=== PATIENT | male | born 1960 | race Caucasian/White ===

== ENCOUNTER 2024-07-03 14:44 | Inpatient (IN) | payer MEDICARE, OTHER, SELFPAY ==
[2024-07-03] VITALS (30 sets, daily range): BP systolic 100–162; BP diastolic 68–106; BMI 28.0; BMI 26.5
[2024-07-03 13:00] LABS: % Basophils 0.2 % (0-2); % Eosinophils 0.4 % (0-6); % Immature Granulocytes 0.7 % (0-0.5); % Lymphocytes 20.1 % (20.5-51.1); % Monocytes 7.7 % (1.7-9.3); % Neutrophils 70.9 % (42.2-75.2); Absolute Eosinophils 0.1 10^3/uL (0-0.7); Absolute Immature Granulocytes 0.2 10^3/uL (0-0.05); Absolute Lymphocytes 4.8 10^3/uL (1.2-3.4); Absolute Monocytes 1.8 10^3/uL (0.1-0.6); Absolute Neutrophils 16.9 10^3/uL (1.4-6.5); Hematocrit 41.9 % (39.0-52.0); Hemoglobin 14.3 g/dL (13.0-18.0); Mean Corp Hgb Conc. 34.1 g/dL (33.0-37.0); Mean Corpuscular Hgb 29.1 pg (27.0-31.0); Mean Corpuscular Volume 85.3 fL (80.0-94.0); Mean Platelet Volume 11.5 fL (7.4-10.4); Nucleated Red Blood Cells % 0 % (-); Platelet Count 210 10^3/uL (130-400); Red Blood Cell Count 4.91 10^6/uL (4.70-6.10); Red Cell Dist. Width 13.5 % (11.5-14.5); White Blood Cell Count 23.8 10^3/uL (4.8-10.8)
[2024-07-03 13:09] LABS: Venous Blood Gas B.E. 1.2 mmol/L (-4 to +4); Venous Blood Gas HCO3 35.6 mmol/L (22-27); Venous Blood Gas O2 Sat % 99.5 %; Venous Blood Gas pO2 187 mmHg (30-50)
[2024-07-03 13:13] LABS: Venous Blood Gas pCO2 > 115 mmHg (35-48); Venous Blood Gas pH 7.08 (7.32-7.43)
[2024-07-03 13:15] LABS: ALT (SGPT) 81 U/L (0-50); AST (SGOT) 150 U/L (17-59); Albumin 4.3 g/dl (3.5-5.0); Alkaline Phosphatase 64 U/L (38-126); Blood Urea Nitrogen 24 mg/dl (9-20); Carbon Dioxide 33 mmol/L (22-30); Chloride 97 mmol/L (98-107); Estimated Creatinine Clearance 94 ml/min; Glucose 311 mg/dl (70-99); Potassium 4.5 mmol/L (3.5-5.1); Sodium 139 mmol/L (135-145); Total Bilirubin 1.1 mg/dl (0.2-1.3); Total Protein 7.9 g/dl (6.3-8.2); eGFR > 60.00
[2024-07-03 13:23] LABS: INR 1.04; PT 13.4 Sec (11.4-14.6)
[2024-07-03 13:24] LABS: Troponin I < 0.012 ng/ml
[2024-07-03 14:27] LABS: Venous Blood Gas B.E. 5.5 mmol/L (-4 to +4); Venous Blood Gas HCO3 39.5 mmol/L (22-27); Venous Blood Gas O2 Sat % 99.9 %; Venous Blood Gas pO2 198 mmHg (30-50)
[2024-07-03 14:29] LABS: Venous Blood Gas pCO2 > 115 mmHg (35-48); Venous Blood Gas pH 7.14 (7.32-7.43)
--- NOTE | 2024-07-03 14:55 | HPS.HSE ---
Family Physician
-
Family Physician: Samantha Khoury MD
Chief Complaint
-
Resp Distress
History of Present Illness
Patient is a 64y M with PMH significant for neuromuscular disease and vocal cord dysfunction who presents to ED in respiratory distress. History obtained primarily from family at the bedside. Patient has history of neuromuscular disease - ? ALS
versus myasthenia - initially diagnosed in 2021. He had been intubated 5 times in a span of 10 months in 2022 - typically due to aspiration from dysphagia / vocal cord dysfunction. He had PEG tube placed in November / December of this year and has
been doing fairly well since that time. He is followed by Neurology at [place] and Pulmonology at [place]. He uses NIPPV at night routinely.
For the past 3 days, patient has been somewhat more SOB than usual. He has been having episodes of significant dyspnea - mostly at night - that seem to improve with use of BiPAP.
Today he walked the dog and when he came back inside he was significantly short of breath. Patient went upstairs and placed his NIPPV on in an attempt to catch his breath.
Son notes that he becomes anxious when SOB (understandably) which only worsens his symptoms.
While on BiPAP, he became diaphoretic / cyanotic and lost consciousness. EMS was called and patient brought to the ED for further evaluation.
In the ED, patient was placed on NIPPV and is currently more alert and answering questions for his family members at the bedside.
Medical History
Past Medical History
Past Medical History: Reports Other
Additional Past Medical History:
Neuromuscular Disease / Vocal Cord Dysfunction
Myasthenia Gravis v ALS
Hypertension
Past Surgical History: Reports Other
Additional Past Surgical History:
Hernia Repair
PEG Placement
Social History
Tobacco: Former Smoker (Quit smoking 2 years ago. > 40 pack years total use.)
Alcohol: None
Drug: None
Personal:
Living: With Family
Family History
Family History: Not pertinent
Allergies / Home Medications
Allergies reflects when Allergies were last updated in [employer].
Home Medications with original date entered in [employer]
Allergy/Medication List:
Allergies
Allergy/AdvReac Type Severity Reaction Status Date / Time
succinylcholine Allergy Unknown Verified 07/03/24 13:12
Home Medications
atorvastatin 20 mg tablet 20 mg feeding tube DAILY 07/03/24
glycopyrrolate 1 mg tablet 1 mg feeding tube TID 07/03/24
metoprolol tartrate 50 mg tablet 50 mg feeding tube BID 07/03/24
prednisone 20 mg tablet 20 mg feeding tube Q48H 07/03/24
prednisone 20 mg tablet 40 mg feeding tube Q48H 07/03/24
pyridostigmine bromide 180 mg tablet,extended release 180 mg PO HS 07/03/24
pyridostigmine bromide 60 mg/5 mL oral syrup 60 mg feeding tube TID 07/03/24
sulfamethoxazole 800 mg-trimethoprim 160 mg tablet (Bactrim DS) 1 tab feeding tube MOWEFR 07/03/24
tadalafil 5 mg tablet 5 mg feeding tube DAILYPRN PRN ed 07/03/24
Review of Systems
-
History Source: Patient and Family
A 12 point ROS was completed and negative except as noted: Yes
Constitutional: Reports Fatigue; Denies Fever or Chills
EENT: Denies Sore Throat
Respiratory: Reports Trouble Breathing; Denies Cough or Hemoptysis
Cardiac: Reports Diaphoresis and Syncope; Denies Chest Pain or Palpitations
Abdomen/GI: Denies Abdominal Pain, Nausea, Vomiting, Diarrhea or Constipated
: Denies Dysuria, Frequency or Flank Pain
Musculoskeletal: Denies Joint Pain or Edema
Neurological: Denies Dizzy or Headache
Psych: Denies Depression or Anxiety
Physical Exam
Vital Signs
Vital Signs
Temp Pulse Resp BP Pulse Ox
98.2 F 78 20 148/96 94
07/03/24 12:57 07/03/24 14:00 07/03/24 14:00 07/03/24 14:00 07/03/24 14:00
Physical Exam
General: Other (64y M with BiPAP mask in place. Diaphoretic. Awake and interactive.)
HEENT: Other (Thick neck. MMM)
Respiratory: Other (Decreased breath sounds throughout. No appreciable W/R/R.)
Cardiac: S1/S2 and Regular Rhythm; No Murmur
GI: Soft, Non Tender, Non Distended, Normal Bowel Sounds and Other (PEG site OK without erythema / induration / discharge.)
Musculoskeletal: No Clubbing, No Cyanosis and No Edema
Neuro: Awake and Alert
Laboratory Results
-
07/03/24 12:52
07/03/24 12:53
Laboratory Results
PT 13.4 Sec (11.4-14.6) 07/03/24 12:52
INR 1.04 07/03/24 12:52
APTT 27.0 Sec (23.4-35.0) 07/03/24 12:52
Total Bilirubin 1.1 mg/dl (0.2-1.3) 07/03/24 12:53
AST 150 U/L (17-59) H 07/03/24 12:53
ALT 81 U/L (0-50) H 07/03/24 12:53
Alkaline Phosphatase 64 U/L (38-126) 07/03/24 12:53
Troponin I < 0.012 ng/ml 07/03/24 12:52
Impression/Plan
-
A/P: Patient is a 64y M with PMH significant for myasthenia / neuromuscular disease who presents to ED for evaluation of respiratory distress.
Acute Hypercapnic / Hypoxemic Respiratory Failure
Syncope secondary to the above
- Admit for further evaluation and treatment.
- Admit to ICU.
- Continue NIPPV for now and follow for improvement clinically and in gas exchange.
- May ultimately require intubation.
- Pulmonary consult for additional recommendations.
Neuromuscular Disease
Chronic Dysphagia
- History of vocal cord dysfunction / chronic dysphagia with multiple prior episodes of aspiration requiring intubation.
- No issues since PEG placement in Nov of this year.
- Keep NPO.
- Speech eval.
- Dietary eval for tube feed recommendations.
- Will cover with IV abx for now for possible aspiration event leading to today's increase in dyspnea.
- Discontinue abx if no fever or other evidence of infection in the next 24-48 hours.
- Change to IV steroids for now.
- Neurology evaluation for additional recommendations.
- Try to obtain outpatient records for review.
Benign Hypertension
- Stable. Continue metoprolol with holding parameters.
DVT Prophylaxis: Lovenox
Code Status: Full
--- NOTE | 2024-07-03 14:58 | ED.GENMED ---
History of Present Illness
General
Chief Complaint: Airway Problem
Source: patient and family (son)
Time Seen by Provider: 07/03/24 13:14
History of Present Illness
History of Present Illness:
64-year-old male brought to the emergency room by paramedics after having respiratory distress. History obtained through the patient's son who is a medical oncologist at [place]. Patient has a history of a neuromuscular disease. The exact
diagnosis is unclear but myasthenia gravis or ALS are considered. Patient has had multiple intubations in the past due to was thought to be vocal cord spasm, aspiration hypercapnia. Because of this the patient has a feeding tube for which she
receives all his nutrition. Since the feeding tube is placed the patient has not required the patient. For the past couple days the patient has had some change in his voice and perhaps difficulty swallowing. Today after walking the dog he was
having respiratory distress and was cyanotic. Became unresponsive. Medics arrived and began bag valve mask ventilation. By the time the patient arrived to the emergency room he was more alert. He was still confused but breathing spontaneously.
During his initial evaluation patient's mental status continued to improve.
Phy Exam
Physical Exam
Physical Exam:
General: Awake, eyes open, appears chronically ill, irregular breathing pattern
Vitals: unremarkable
Head: Atraumatic
Eyes: Pupils equal, EOMI
Throat: Airway intact, no exudates
Neck: Trachea midline
Lungs: Coarse breath sounds
Heart: Regular rate, no murmurs
Abd: Soft, Nontender, G-tube placed, no pulsatile mass
Neuro: No focal weakness
Skin: Warm, dry, no rash
Extremities: pulses equal b/l, no edema
Course
Orders/Labs/Results
Orders:
Orders
07/03/24 12:52
Complete Blood Count/With Diff Urgent
PT/INR [Prothrombin Time] Urgent
PTT Urgent
TSH Reflex To Free T4 Urgent
Comment: COMBINED
Troponin I Urgent
07/03/24 12:53
Comprehensive Metabolic Panel Urgent
Creatine Phosphokinase Urgent
07/03/24 13:00
Venous Blood Gas Urgent
%Oxygen/Room Air: 100
Comment: Non-Rebreather 15L
07/03/24 13:48
CR Chest Portable - 1 View Urgent
Comment:
Reason For Exam: respiratory disress
Reason Study Needs to be Portable: Patient Unstable
07/03/24 14:11
Venous Blood Gas Urgent
%Oxygen/Room Air: 6l
07/03/24 14:24
Admit/Transfer Patient As Directed
Co-Sign Provider:
Level of Care: Inpatient admission
Assign to:: ICU
Physician / Group: Victor M
Diagnosis: Hypercapnic Respiratory Failure
Reason for Hospitalization: Hypercapnic Respiratory Failure
Expected length of stay greater than two midnights?: Yes
ELOS- Estimated Length of Stay in days: 4
I certify the patient meets the requirements for IP care: Yes
PRN Pain Medication Management As Directed
May give lesser potent ordered pain med per pt: Yes
preference::
Protocol:: Medication orders for pain may be administered in a
manner that supports deferring to patient preference
when the pt is:
- Requesting an ordered lesser potent pain medication.
Least to most potent pain medications are defined
as: acetaminophen < NSAID < tramadol < opioids
(morphine, oxycodone, hydromorphone).
- Requesting a lesser dose of the same medication IF
ORDERED.
- Requesting a less intrusive route of administration
if both routes are prescribed by the provider (PO <
IV).
07/03/24 14:25
Code Status As Directed
Resuscitation Status: Full Code
07/03/24 15:56
Acetaminophen [Tylenol] 650 mg TUBE Q4HPRN PRN
Albuterol Nebs [Ventolin Nebules] 2.5 mg INH R Q4HPRN PRN
Dextrose 50%-Water [Dextrose 50% Syringe] 12.5 grams IV [id number] PRN
Glucagon [GlucaGen] 1 mg IM PRN PRN
07/03/24 15:56
DIETARY CONSULT Routine
Reason for Consult: Tube Feeds
PULMONARY CONSULT Routine
Consulting Provider: Jon Burroughs
Was physician already notified: Yes
Reason for consult: Hypercapnic Respiratory Failure, Neuromuscular Disease
Activity As Directed
Activity Level: Bedrest
Bedside Glucose Monitoring As Directed
Frequency: Q6H
Additional Instructions:: Change to q6h if pt on TPN, tube feeding or not eating
Bladder Scan As Directed
Follow Bladder Retention/Intermittent Cath Algorithm?: Yes
PRN if no void in __ hours: 6
Frequency: Per Retention Algorithm
If Bladder Scan Result >: 400
then:: Straight cath
EKG with chest pain [ECG as needed] As Directed
ECG as needed for:: Chest Pain
Gastrointestinal Tubes As Directed
Type: Gastrostomy
To suction?: No
Irrigate tube?: Yes
Irrigant: Tap Water
Frequency: Q4H
Amount in mls: 30
Irrigation Directions: Irrigate Q4H and PRN
I/O [Intake/ Output] As Directed
Frequency: Per unit guidelines
Straight Cath As Directed
Frequency: Per Retention Algorithm
Additional Instructions: straight cath as needed per acute urinary retention algorithm for 24 hrs
Additional Instructions: for bladder scan greater than 400 mL
Vital Signs As Directed
Frequency: Per unit guidelines
Weight As Directed
Frequency: Daily
Chest PT [Rx Chest Pt] [RESP] Routine
Special Instructions: BID
Ot Eval And Treat Routine
PT Consult [Pt Eval And Treat] Routine
Activity Level: Ambulate
With Assistance
Speech Therapy Eval & Treat Routine
DX Deep Vein Thrombosis Video Routine
07/03/24 16:00
Dexamethasone Sod Phosphate [Decadron] 4 mg IV Q6H
Glycopyrrolate [Robinul] 1 mg TUBE TID
Ipratropium/Albuterol Sulfate [Duoneb] 3 ml INH R QID
Piperacillin/Tazo 3.375 Gram [Zosyn] 3.375 gram in 50 ml IV Q6H
07/03/24 16:30
Insulin Aspart Corrective Low [Novolog Flexpen-Low Resistance] See Protocol SC AC
07/03/24 18:00
Enoxaparin Sodium [Lovenox] 40 mg SC QPM
07/03/24 20:00
Metoprolol [Lopressor] 50 mg TUBE BID
07/04/24 03:47
Complete Blood Count/No Diff IN AM
Glycohemoglobin (HgbA1c) IN AM
Magnesium IN AM
Phosphorus IN AM
07/04/24 06:00
EKG [Electrocardiogram (*1)] IN AM
Reason for Study: Chest Pain
07/04/24 08:00
Pantoprazole [Protonix IV] 40 mg IV DAILY
Abnormal Lab Results
07/03/24 07/03/24 07/03/24
12:52 12:53 13:00
WBC 23.8 H 10^3/uL
(4.8-10.8)
MPV 11.5 H fL
(7.4-10.4)
Abs Immat Gran (auto) 0.2 H 10^3/uL
(0-0.05)
Absolute Neuts (auto) 16.9 H 10^3/uL
(1.4-6.5)
Absolute Lymphs (auto) 4.8 H 10^3/uL
(1.2-3.4)
Absolute Monos (auto) 1.8 H 10^3/uL
(0.1-0.6)
Immature Gran % 0.7 H %
(0-0.5)
Lymphocytes % 20.1 L %
(20.5-51.1)
VBG pH 7.08 L*
(7.32-7.43)
VBG pCO2 > 115 H* mmHg
(35-48)
VBG pO2 187 H mmHg
(30-50)
VBG HCO3 35.6 H mmol/L
(22-27)
Chloride 97 L mmol/L
(98-107)
Carbon Dioxide 33 H mmol/L
(22-30)
BUN 24 H mg/dl
(9-20)
Glucose 311 H mg/dl
(70-99)
AST 150 H U/L
(17-59)
ALT 81 H U/L
(0-50)
07/03/24
14:11
WBC
MPV
Abs Immat Gran (auto)
Absolute Neuts (auto)
Absolute Lymphs (auto)
Absolute Monos (auto)
Immature Gran %
Lymphocytes %
VBG pH 7.14 L*
(7.32-7.43)
VBG pCO2 > 115 H* mmHg
(35-48)
VBG pO2 198 H mmHg
(30-50)
VBG HCO3 39.5 H mmol/L
(22-27)
Chloride
Carbon Dioxide
BUN
Glucose
AST
ALT
07/03/24 12:52
07/03/24 12:53
Vital Signs
Initial and Last Documented VS:
Initial Vital Signs
Pulse Resp BP
67 22 162/96
07/03/24 12:47 07/03/24 12:47 07/03/24 12:47
Last Documented Vital Signs
Temp Pulse Resp BP Pulse Ox
97.9 F 89 20 105/69 94
07/04/24 12:00 07/04/24 13:36 07/04/24 13:35 07/04/24 13:36 07/04/24 13:35
MDM/Problems Addressed
Differential Diagnosis Includes:
Aspiration pneumonia, exacerbation of neuromuscular disease, hypercapnic respiratory failure
MDM/Problems Addressed:
Patient presented with unresponsive and being cyanotic. I was prepared to intubate the patient upon arrival but he appeared to have a trend towards improvement. We tried traditional BiPAP but the patient pulled the mask off. Respiratory was able
to provide a device similar to what he uses at home, AVAPS, during naps and at night. Patient was able to tolerate this device much more. He had a progressive improvement in his mental status including being awake, following commands. Initial
labs showed a elevation in his white blood cell count of 23,000, chemistry show mild prerenal azotemia. Troponin is normal. VBG showed hypercapnia with a pH of 7.08 and a CO2 of greater than 115. Repeat ABG shows a persistently high CO2 but his
pH is trending upward at 7.14. The patient was again reevaluated and he continues to be awake and interactive. His venous blood gas suggest he needs to be intubated but clinically he does not appear to require intubation. He is not somnolent as I
would expect from an elevated CO2. I discussed the patient's presentation with Dr. Burroughs who is on-call for critical care/pulmonology. He agrees with continuing noninvasive ventilation and trending his labs and mental status.
Chronic conditions affecting care: Neurological disorder (Neuromuscular disease)
*Radiology
Radiology exam reviewed: preliminary read by ED provider (Portable chest x-ray shows no acute infiltrate)
*Pulse Oximetry
Patient hypoxic: yes
*EKG
Interpreted by ED Provider?: Yes
Heart Rate: 78
Rate: normal
Rhythm: sinus
[place]: normal axis
QRS Pattern: normal QRS
Ischemia: no ischemia
*Train Control Technician Interpretation
Rate: normal
Interpretation: normal
Rhythm: sinus
*Critical Care Note
Total Time (30-74mins, 75-104mins- exclusive of procedures): 40 min
comment:
Critical care statement: A total of 40 minutes of critical care time was provided for this patient. This includes management of unstable vital signs, evaluation of the patient at bedside, reviewing the patient's pertinent medical records, discussion
with consultants, review of old EKGs and review of pertinent medical records. This time with separate from time utilized to perform the aforementioned documented procedures
ED Attending Note
-
Portions of this chart may have been created with voice recognition software.� Occasional wrong word or��sound alike� substitutions may have occurred due to the inherent limitations of voice recognition software.
Discharge Plan
Departure
Patient Disposition: Admit
Presentation/result/management discussed w/ accepting MD/DO: Hospitalist
Discharge Problem:
Acute hypercapnic respiratory failure
Interventions
Interventions:
*Risk Screen - Suicide Last Done: 07/03/24 13:08
*General Assessment Last Done: 07/03/24 13:05
*Neglect/Abuse Screening Last Done: 07/03/24 13:08
ED- Fall Risk Assessment Last Done: 07/03/24 13:01
*ED COVID-19 Vaccine History Last Done: 07/03/24 13:05
*Nursing Disposition Last Done: 07/03/24 16:11
ED- Pulmonary Assessment Last Done: 07/03/24 13:03
Discharge Date and Time
Discharge Date/Time: 07/03/24 16:12
[2024-07-03 15:48] LABS: Urine Albumin 2+ (Neg - Trace); Urine Bilirubin Negative (Negative); Urine Character Clear (Clear); Urine Color Yellow; Urine Glucose 3+ (Negative); Urine Ketone Negative (Negative); Urine Leukocyte Negative (Negative); Urine Nitrite Negative (Negative); Urine Occult Blood 1+ (Negative); Urine Urobilinogen Negative (Neg - 1+)
--- NOTE | 2024-07-03 15:58 | CON.NEURO ---
Consultation
Order
Date of Consultation: 07/03/24
Requesting Provider:
Reason for Consult: MG management
CC: none
HPI: This is a 64-year-old man who presented to [facility] with respiratory distress. According to patient's son the patient has had progressive dyspnea over the last several days and was noted to have dysphonia with relatively acute
respiratory distress with no dysarthria, diplopia or ptosis leading to the hospitalization.
Mr. Earl has a history of refractory seronegative/thymoma negative myasthenia gravis and is under the care of Dr. Jyothi Wu. Stephon initially presented with dysphagia in August 2021 during COVID pandemic. He continued on to have
frequent hospitalizations for respiratory failure/aspiration pneumonitis treated with steroids. He was also felt to have MND and was briefly treated with Riluzole before repeat NCS/EMG did not show acute denervation.
Mr. Earl was managed with IVIG, Prednisone as well as symptomatic therapy with Mestinon and Glycopyrrolate.
His prednisone was reportedly reduced from 60 mg QD to 40/20 mg every other day in Feb, 2024 after he underwent PEG in December of this year. His IVIG frequency was increased form monthly to BIW(not sure when). He has never reportedly been on chronic
immunotherapy.
According to ruthie's son the patient does have coffee per os on and off.
ER VS:162/96, 67, afebrile, 98% on 6 L of nasal cannula.
PDMP:none
Labs: Glucose�311, WBCs�23.8, absolute neutrophil count�16.9, normal sodium, creatinine, AST�150, ALT�81, negative troponin, UA�glucosuria, negative leukocyte esterase,
PMH: seronegative myasthenia gravis, HTN, MARY in CPAP, sensory polyneuropathy
PSH: PEG, cataract resection; inguinal hernia repair
SH: ; former smoker; independent in ambulation
FH:not contributory
All: succinylcholine, Riluzole-intolerance
ROS:limited due to noninvasive ventilation
General:
Cardio: Regular rate
Neuro: Mental Status: Awakens to tactile stimuli. Follows simple requests.
Cranial Nerves: Pupils are equally round and reactive to light. EOMs full. BTT BL
Motor: Normal bulk and tone. Mild BL APB/ADM hypotrophy, no fasciculations. No PT. Neck flexors 4-/5. UE-5/5 in proximal and distal groups. Both legs-antigravity
Reflexes: trace throughout. L Bassett's
Sensory: Normal pinprick, vibration and JPS.
Coordination: No dysmetria or tremor.
Gait: deferred
BL hammer toes
Assessment and Plan:
I. MG crisis
II.Hypothermia
III. Chronic dysphagia with microaspiration
-Admit to ICU
-Tele
-NPO
-Stop Mestinon and Glycopyrrolate
-Start IVIG 400 mg/kg QD
-Check TPMT
-Avoid aminoglycosides (gentamicin, neomycin, tobramycin), Clindamycin, Fluoroquinolones (ciprofloxacin, levofloxacin, norfloxacin), Vancomycin, Beta blockers � (atenolol, labetalol, metoprolol, propranolol), Procainamide, Quinidine, Botulinum
toxin, Hydroxychloroquine, Magnesium, Penicillamine
-Continue home dose of prednisone
-TFTs,
-Brain MRI wo gurmeet
-elective intubation for VC below 15 to 20 mL/kg and MIP less negative than -25 to -30 cmH20.
I personally reviewed all radiology and labs along with past medical records pertinent to current medical problems. Total time spent in patient care is 75 minutes.
Thank you for allowing us to participate in the care of this patient. We will continue to follow. Please do not hesitate to contact us with any questions or concerns.
Subjective/Objective
Subjective Data
Date of Service: July 03, 2024
Objective Data
Vital Signs
Temp Pulse Resp BP Pulse Ox
36.8 C 76 25 139/85 95
07/03/24 12:57 07/03/24 15:30 07/03/24 15:30 07/03/24 15:30 07/03/24 15:30
Lab Results
07/03/24 12:52
07/03/24 12:53
PT 13.4 Sec (11.4-14.6) 07/03/24 12:52
INR 1.04 07/03/24 12:52
APTT 27.0 Sec (23.4-35.0) 07/03/24 12:52
Sodium 139 mmol/L (135-145) 07/03/24 12:53
Potassium 4.5 mmol/L (3.5-5.1) 07/03/24 12:53
BUN 24 mg/dl (9-20) H 07/03/24 12:53
Glucose 311 mg/dl (70-99) H 07/03/24 12:53
Calcium 9.0 mg/dl (8.4-10.2) 07/03/24 12:53
Patient Allergies
succinylcholine Allergy (Verified 07/03/24 13:12)
Unknown
Medications
-
Active Medications
Generic Name Dose Route Start Last Admin
Trade Name Freq PRN Reason Stop Dose Admin
Acetaminophen 650 mg 07/03/24 15:56
Acetaminophen 325 Mg Tablet TUBE 07/31/24 15:55
Q4HPRN PRN
Mild Pain / Temp > 101
Albuterol Sulfate 2.5 mg 07/03/24 15:56
Albuterol Nebs 2.5 Mg/3 Ml Ampul INH
R Q4HPRN PRN
SOB
Protocol
Albuterol/Ipratropium 3 ml 07/03/24 16:00
Ipratropium 0.5/Albuterol 3 Mg (3 Ml Ampul) INH
R QID BECK
Protocol
Dexamethasone Sodium Phosphate 4 mg 09/29/24 16:00
Dexamethasone 4 Mg/Ml 1 Ml Vial IV 07/31/24 15:59
Q6H BECK
Dextrose 12.5 grams 07/03/24 15:56
Dextrose 50% (0.5 Grams/Ml) 50 Ml Syringe IV 07/31/24 15:55
[id number] PRN
hypoglycemia
Protocol
Enoxaparin Sodium 40 mg 07/03/24 18:00
Enoxaparin Sodium 40 Mg/0.4 Ml Syringe SC 07/31/24 17:59
QPM BECK
Glucagon 1 mg 07/03/24 15:56
Glucagon 1 Mg Vial IM 07/31/24 15:55
PRN PRN
hypoglycemia
Protocol
Glycopyrrolate 1 mg 07/03/24 16:00
Glycopyrrolate 1 Mg Tablet TUBE 07/31/24 15:59
TID BECK
Piperacillin Sod/Tazobactam Sod 3.375 gram in 50 mls @ 100 mls/hr 07/03/24 16:00
Zosyn IV
Q6H BECK
Insulin Aspart 0 units 07/03/24 16:30
Insulin Aspart Low Resistance 300 Units/3 Ml Pen.Injctr SC 07/31/24 16:29
AC BECK
Protocol
Metoprolol Tartrate 50 mg 07/03/24 20:00
Metoprolol 50 Mg Regular Release Tablet TUBE 07/31/24 19:59
BID BECK
Pantoprazole Sodium 40 mg 07/04/24 08:00
Pantoprazole Sodium 40 Mg/10 Ml Vial IV 08/01/24 07:59
DAILY BECK
Home Medications
�Medication �Instructions �Recorded
atorvastatin 20 mg tablet 20 mg feeding tube DAILY 07/03/24
glycopyrrolate 1 mg tablet 1 mg feeding tube TID 07/03/24
metoprolol tartrate 50 mg tablet 50 mg feeding tube BID 07/03/24
prednisone 20 mg tablet 20 mg feeding tube Q48H 07/03/24
prednisone 20 mg tablet 40 mg feeding tube Q48H 07/03/24
pyridostigmine bromide 180 mg 180 mg PO HS 07/03/24
tablet,extended release
pyridostigmine bromide 60 mg/5 mL 60 mg feeding tube TID 07/03/24
oral syrup
sulfamethoxazole 800 1 tab feeding tube MOWEFR 07/03/24
mg-trimethoprim 160 mg tablet
(Bactrim DS)
tadalafil 5 mg tablet 5 mg feeding tube DAILYPRN PRN ed 07/03/24
Vital Signs and Labs
-
Vital Signs and Labs:
Vital Signs
Temp Pulse Resp BP Pulse Ox
33.8 C L 79 23 147/89 98
07/03/24 16:20 07/03/24 16:01 07/03/24 15:45 07/03/24 16:01 07/03/24 16:04
Lab Results
07/03/24 12:52
07/03/24 12:53
PT 13.4 Sec (11.4-14.6) 07/03/24 12:52
INR 1.04 07/03/24 12:52
APTT 27.0 Sec (23.4-35.0) 07/03/24 12:52
Sodium 139 mmol/L (135-145) 07/03/24 12:53
Potassium 4.5 mmol/L (3.5-5.1) 07/03/24 12:53
BUN 24 mg/dl (9-20) H 07/03/24 12:53
Glucose 311 mg/dl (70-99) H 07/03/24 12:53
Calcium 9.0 mg/dl (8.4-10.2) 07/03/24 12:53
Medications
-
Medications:
Generic Name Dose Route Start Last Admin
Trade Name Freq PRN Reason Stop Dose Admin
Acetaminophen 650 mg 07/03/24 15:56
Acetaminophen 325 Mg Tablet TUBE 07/31/24 15:55
Q4HPRN PRN
Mild Pain / Temp > 101
Albuterol Sulfate 2.5 mg 07/03/24 15:56
Albuterol Nebs 2.5 Mg/3 Ml Ampul INH
R Q4HPRN PRN
SOB
Protocol
Albuterol/Ipratropium 3 ml 07/03/24 16:00
Ipratropium 0.5/Albuterol 3 Mg (3 Ml Ampul) INH
R QID BECK
Protocol
Dexamethasone Sodium Phosphate 4 mg 07/03/24 16:00 07/03/24 16:09
Dexamethasone 4 Mg/Ml 1 Ml Vial IV 07/31/24 15:59 4 mg
Q6H BECK Administration
Dextrose 12.5 grams 07/03/24 15:56
Dextrose 50% (0.5 Grams/Ml) 50 Ml Syringe IV 07/31/24 15:55
[id number] PRN
hypoglycemia
Protocol
Enoxaparin Sodium 40 mg 07/03/24 18:00
Enoxaparin Sodium 40 Mg/0.4 Ml Syringe SC 07/31/24 17:59
QPM BECK
Glucagon 1 mg 07/03/24 15:56
Glucagon 1 Mg Vial IM 07/31/24 15:55
PRN PRN
hypoglycemia
Protocol
Glycopyrrolate 1 mg 07/03/24 16:00 07/03/24 16:15
Glycopyrrolate 1 Mg Tablet TUBE 07/31/24 15:59 Not Given
TID BECK
Piperacillin Sod/Tazobactam Sod 3.375 gram in 50 mls @ 100 mls/hr 07/03/24 16:00 07/03/24 16:09
Zosyn IV 50 mls
Q6H BECK Administration
Insulin Aspart 0 units 07/03/24 17:00
Insulin Aspart Low Resistance 300 Units/3 Ml Pen.Injctr SC 07/31/24 16:59
Q6 BECK
Protocol
Metoprolol Tartrate 50 mg 07/03/24 20:00
Metoprolol 50 Mg Regular Release Tablet TUBE 07/31/24 19:59
BID BECK
Pantoprazole Sodium 40 mg 07/04/24 08:00
Pantoprazole Sodium 40 Mg/10 Ml Vial IV 08/01/24 07:59
DAILY BECK
Sodium Chloride 10 ml 07/04/24 08:00
Sodium Chloride 0.9% (Preservative Free) 10 Ml Vial IV 08/01/24 07:59
DAILY BECK
Home Medications
-
Home Medications
atorvastatin 20 mg tablet 20 mg feeding tube DAILY 07/03/24
glycopyrrolate 1 mg tablet 1 mg feeding tube TID 07/03/24
metoprolol tartrate 50 mg tablet 50 mg feeding tube BID 07/03/24
prednisone 20 mg tablet 20 mg feeding tube Q48H 07/03/24
prednisone 20 mg tablet 40 mg feeding tube Q48H 07/03/24
pyridostigmine bromide 180 mg tablet,extended release 180 mg PO HS 07/03/24
pyridostigmine bromide 60 mg/5 mL oral syrup 60 mg feeding tube TID 07/03/24
sulfamethoxazole 800 mg-trimethoprim 160 mg tablet (Bactrim DS) 1 tab feeding tube MOWEFR 07/03/24
tadalafil 5 mg tablet 5 mg feeding tube DAILYPRN PRN ed 07/03/24
[2024-07-03 15:59] LABS: Urine Mucus Moderate
[2024-07-03 16:01] LABS: Urine Granular Cast >15 /LPF (0)
[2024-07-03 16:02] LABS: Urine Amorphous Seen; Urine Bacteria Few (Negative)
[2024-07-03] MEDS: ZOSYN 50 IV ×2 (16:09→21:19)
[2024-07-03] MEDS: DECADRON 4 MG IV ×2 (16:09→21:19)
--- NOTE | 2024-07-03 16:28 | CON.INTV ---
Consultation
Consultation Request
Date/Time Consultation Requested: 07/03/2024 - 155
Date/Time Consultation Performed: 07/03/2024 - 160
Requesting Provider: Dr. Dow
Performing Provider: Dr. Burroughs
Reason for Consultation: Hypercapneic respiraotry failure
Medical History
-
Chief Complaint: Collapsed at home
History of Present Illness:
64-year-old male former tobacco smoker with a past medical history of neuromuscular disease (suspected MG vs ALS), chronic hypercapnic respiratory failure on home AVAPS with baseline pCO2 ~60s, vocal cord dysfunction with right sided vocal cord
paralysis + left-sided vocal cord paresis and hypertension who presents with syncopal event. Per the son, Yevgeniy, patient was out walking his dog and then after coming back he felt very short of breath. He then turned blue and passed out in front of
his son. Pulse was never lost. Patient was unresponsive and EMS was called and patient was brought here to the ER for further evaluation. Patient was bagged en route here to the ER and was more arousable once he got here to the hospital.
According to the son, patient follows with ENT + pulmonary at [place]. He usually has difficulty handling his secretions and has a wet cough, and uses glycopyrrolate 3 times a day to help with this. He uses AVAPS at home and has been compliant. The
son has noticed that the patient's voice has been more hoarse and weaker the last few days and that usually leads to an exacerbation. In the ER the patient was afebrile to 98.2 �F, pulse rate 67, breathing at 22 breaths/min, BP 162/96 and
saturating 89% on nonrebreather. He was transitioned to BiPAP bled with 6 L/min and saturations improved to 99%. Labs showed pH 7.14 with pCO2 >115, leukocytosis to 23.8, serum bicarbonate level 33, glucose 311, and troponin negative at <0.012.
CXR showed no acute cardiopulmonary disease. Neurology was consulted and he was started on IVIG given concern for myasthenic crisis. He also was started on Decadron 4 mg IV q6hr. Due to his severe hypercapnic respiratory failure, he was admitted
to the ICU for further care and complaint operator/pulmonary services consulted for additional management/recommendations.
When I saw the patient he was on AVAPS with TV: 620mL, rate: 18, minimum IPAP: 15, max IPAP: 40, i-time: 1.3 seconds at FiO2 40% and EPAP: 8. His VTe was 648 mL, he was breathing at 18 breaths/min with PIP: 44 cmH2O. Patient triggering was 33%.
According to the son, even at home his patient triggering is around 10-20% at times. Patient was saturating 98% with heart rate 74 and BP 151/97. I spoke to the son at bedside and answered all of his questions. The patient does arouse to voice
and tactile stimulation but then quickly falls back asleep. According to the son, the patient did not get very much sleep at all yesterday and he is exhausted.
PMHx: NM-disease (suspected myasthenia gravis vs ALS), vocal cord dysfunction with history of right-sided vocal cord paralysis and left-sided vocal cord paresis, chronic hypercapnic respiratory failure on home AVAPS, hypertension, former tobacco use
disorder (quit 2 years ago with >40-PY Hx)
PSHx: Hernia repair, PEG placement
Past Medical History
Past Medical History: Other (Above as per HPI)
Past Surgical History: Other (Above as per HPI)
Social History
Tobacco: Former Smoker (quit 2 years ago with >40-PY Hx)
Alcohol: None
Drug: None
Personal:
Living: With Family
Family History
Family History: Reviewed & Not Pertinent
Allergies / Home Medications
Allergies
Allergy/AdvReac Type Severity Reaction Status Date / Time
succinylcholine Allergy Unknown Verified 07/03/24 13:12
Home Medications
�Medication �Instructions �Recorded �Confirmed �Last Taken �Type
atorvastatin 20 mg tablet 20 mg feeding tube DAILY 07/03/24 07/03/24 Unknown History
glycopyrrolate 1 mg tablet 1 mg feeding tube TID 07/03/24 07/03/24 Unknown History
metoprolol tartrate 50 mg tablet 50 mg feeding tube BID 07/03/24 07/03/24 Unknown History
prednisone 20 mg tablet 20 mg feeding tube Q48H 07/03/24 07/03/24 Unknown History
prednisone 20 mg tablet 40 mg feeding tube Q48H 07/03/24 07/03/24 Unknown History
pyridostigmine bromide 180 mg 180 mg PO HS 07/03/24 07/03/24 Unknown History
tablet,extended release
pyridostigmine bromide 60 mg/5 mL 60 mg feeding tube TID 07/03/24 07/03/24 Unknown History
oral syrup
sulfamethoxazole 800 1 tab feeding tube MOWEFR 07/03/24 07/03/24 Unknown History
mg-trimethoprim 160 mg tablet
(Bactrim DS)
tadalafil 5 mg tablet 5 mg feeding tube DAILYPRN PRN ed 07/03/24 07/03/24 Unknown History
Review of Systems
-
Unable to Obtain full review of systems at this time due to: Acuity
Vitals / Labs / Diagnostic Testing
Vital Signs
Temp Pulse Resp BP Pulse Ox
93 F L 79 23 147/89 98
07/03/24 16:20 07/03/24 16:01 07/03/24 15:45 07/03/24 16:01 07/03/24 16:04
Lab Data
07/03/24 12:52
07/03/24 12:53
Laboratory Results
07/03/24
12:52
PT 13.4
INR 1.04
APTT 27.0
Diagnostic Testing:
Physical Exam
-
HEENT: Normocephalic, Anicteric and Other (On full face mask on AVAPS)
Cardiovascular: S1/S2 and Peripheral Edema (negative)
Respiratory: Wheeze (inspiratory wheeze (stridor)), Rales (negative), Rhonchi (negative), Non-Labored Respirations and Other (Stridor heard in both anterior lung triplett and anterior neck)
GI: Soft, Non Distended, Non Tender and Normal Bowel Sounds
Neurology: Tremors (negative) and Other (Lethargic but easily arousable to voice and tactile stimulation and following commands/protecting airway)
Skin: Warm and Dry
General: Respiratory Distress (negative), Comfortable, Chills (negative) and Sweats (negative)
Assessment
-
Assessment: 64-year-old male former tobacco smoker with a PMHx of neuromuscular disease (suspected MG vs ALS), chronic hypercapnic respiratory failure on home AVAPS with baseline pCO2 ~60s, vocal cord dysfunction with right sided vocal cord
paralysis + left-sided vocal cord paresis and hypertension who presents with syncopal event. Per the son, Yevgeniy, patient was out walking his dog and then after coming back he felt very short of breath. He then turned blue and passed out in front of
the son. Pulse was never lost. Patient was unresponsive and EMS was called and patient was brought here to the ER for further evaluation. Patient was bagged en route here to the ER and was more arousable once he got here to the hospital. Patient
was found to be in severe hypercapnic respiratory failure and started on BiPAP. CXR showed no acute cardiopulmonary disease. Neurology was consulted and started IVIG given concern for myasthenia crisis. He was also started on systemic steroids
and nebulized bronchodilators. He was admitted to the ICU for further care and complaint operator services now consulted for additional management/recommendations.
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
former tobacco use disorder (quit 2 years ago with >40-PY Hx)
Impression:
#Acute on chronic hypercapnic respiratory failure likely due to stridor with laryngeal spasm in the setting of chronic neuromuscular disease
#Acute respiratory failure with hypoxia
#Neuromuscular disease with MG vs ALS
#Leukocytosis
#Metabolic alkalosis due to chronic hypercapnic respiratory failure
#Hyperglycemia
#Transaminitis
#Former tobacco smoker (quit 2 years ago with 29-mngw-valg history)
#Vocal cord paralysis
#Hypertension
Plan:
- Continuous AVAPS while trending blood gas to assure pH is improving with goal 7.35 - 7.45
- Low threshold to intubate - currently his pH + pCO2 are trending in the right direction and he remains arousable and is protecting his airway, hence no need to intubate at the moment
- Attach ETCO2
- Continue with DuoNebs ATC q6hr with racemic epi as needed
- Aspiration precautions while keeping HOB >30-45�
- Strict NPO
- If able to wean off of BiPAP then check neph
- Maintain SpO2 >90-94%
- Continue Decadron 4mg IV q6hr, and maintain euglycemia while on high dose steroids
- Currently on Zosyn however CXR shows no evidence of PNA. Given his leukocytosis, continue ABx for now but if he remains afebrile over next 1-2 days and HDN stable, then DC ABx at that time
- Neurology consulted and there was concern for myasthenic crisis.
- IVIG started and neurology recommends to stop Mestinon + glycopyrrolate
- Continue IVIG x 5 doses
- Avoid medications that can exacerbate his myasthenia gravis including aminoglycosides, vancomycin and beta-blockers
- Once stable to transport off the unit, check brain MRI
- Check TFTs - TSH: 0.63
- Maintain MAP>65
- Trend LFTs
- Replete electrolytes with K>4, Mg>2
- Maintain euglycemia with goal BG 140-180
- Trend H/H and transfuse if needed to keep Hb>7g/dL; kep plt>20k, unless there is concern for bleeding then keep plt>50k
- Once he is eventually discharged, advised to continue with pulmonary follow-up with [facility]. He also qualifies for annual LDCT chest for lung cancer screening purposes.
- DVT ppx: LMWH
Critical care statement: A total of 40 minutes of critical care time was provided for this patient today. This includes management of unstable vital signs, evaluation of the patient at bedside, reviewing the patient's pertinent medical records
including radiographs, microbiology, laboratory evaluations, and discussion with primary team, consultants, pharmacy, nutrition, physical therapy, case management, charge nurse, critical care nursing, and respiratory therapy.
Data:
CXR 07/03/2024: No evidence of active cardiopulmonary disease.
[2024-07-03 16:29] LABS: Glucose - Point of Care 306 mg/dl (70-99)
[2024-07-03 16:29] LABS: Creatine Phosphokinase 68 U/L (55-170)
[2024-07-03] MEDS: NOVOLOG FLEXPEN-LOW RESISTANCE 4 UNITS SC (16:32)
[2024-07-03] MEDS: NOVOLOG FLEXPEN-LOW RESISTANCE SC (16:33)
[2024-07-03] MEDS: VAPONEFRIN NEBS 0.5 ML INH ×2 (16:34→20:19)
[2024-07-03] MEDS: DUONEB INH (16:35)
[2024-07-03] MEDS: LOVENOX 40 MG SC (16:41)
[2024-07-03] MEDS: DUONEB 3 ML INH ×2 (16:57→20:00)
[2024-07-03 17:02] LABS: TSH Reflex To Free T4 0.63 uIU/ml (0.47-4.68)
--- NOTE | 2024-07-03 17:10 | PTCARENOTE ---
Rec'd pt at approx 1600 from ED. Follows some simple commands, but only moaning/grunting as a verbal response. Nods head appropriately to questions. Monitor SR with PACs. Pt on NIV, fio2 40%, pox 97%. High PIP in 40's with stridor. Pt assessed by
metalizing supervisor, Makenna ordered-given by resp therapist, PIPs down to 20's. +BS, abd soft/nt. CHG bath performed. Son at beside. Pt for repeat VBG ~1800.
[2024-07-03 17:58] LABS: Venous Blood Gas B.E. 10.8 mmol/L (-4 to +4); Venous Blood Gas HCO3 44.2 mmol/L (22-27); Venous Blood Gas pO2 47 mmHg (30-50)
[2024-07-03 18:03] LABS: Venous Blood Gas pCO2 113 mmHg (35-48)
--- NOTE | 2024-07-03 18:28 | PTCARENOTE ---
MD notified of ABG results. To remain on NIV at this time.
[2024-07-03] MEDS: GAMMAGARD 300 IV (19:58)
--- NOTE | 2024-07-03 20:00 | PTCARENOTE ---
Resumed care of pt laying in bed sleeping. pt arousable to voice, able to open eyes, follow all commands, moves all extremities, attempting to talk through NIV mask. Son at bedside talking to pt, Pt nodding head appropriately. HR in the 70's in NSR
on the monitor. POX 99% on current NIV settings : R 18, TV 620, Peep 8, Fio2 40%. LUngs dec with scattered ex wheezes T/O. Pt with HX of vocal cord paralysis. Peg tube in place, no TF ordered at this time. Hypo bowel, round abd. No void at this
time. PRN Bladder scan. Rectal temp 98.1, juliano hugger discontinued. Palpable peripheral pulses present. Skin intact. Pt denies any complaints of pain, reports breathing feels comfortable. Right AC int capped. Left wrist int infusing IVIG per MD
order. Son at bedside updated on plan of care, all questions answered. Call fisher in reach. Will continue to monitor.
[2024-07-03] MEDS: LOPRESSOR 50 MG TUBE (21:19)
[2024-07-03 22:24] LABS: Venous Blood Gas B.E. 12.4 mmol/L (-4 to +4); Venous Blood Gas HCO3 42.7 mmol/L (22-27); Venous Blood Gas O2 Sat % 99.9 %; Venous Blood Gas pH 7.33 (7.32-7.43); Venous Blood Gas pO2 197 mmHg (30-50)
[2024-07-03 22:27] LABS: Venous Blood Gas pCO2 81 mmHg (35-48)
--- NOTE | 2024-07-03 22:47 | PTCARENOTE ---
IVIG infused without complication. Vital signs stable. Bladder scanned for 577ml. St cath pt for 600ml/hr alycia colored urine. Pt tolerated procedure well. Pt able to reposition self without difficulty. Pt denies any complaints. Pt remains on NIV
with no changes at this time. Pt resting comfortably. Will continue to monitor.
[2024-07-03] MEDS: NOVOLOG FLEXPEN-MODERATE RESISTANCE SC (23:57)
[2024-07-04] VITALS (50 sets, daily range): BP systolic 76–152; BP diastolic 44–92; BMI 26.1
[2024-07-04 00:07] LABS: Glucose - Point of Care 131 mg/dl (70-99)
[2024-07-04] MEDS: DUONEB 3 ML INH ×4 (01:20→20:02)
[2024-07-04 03:56] LABS: Venous Blood Gas HCO3 41.7 mmol/L (22-27); Venous Blood Gas pH 7.26 (7.32-7.43); Venous Blood Gas pO2 131 mmHg (30-50)
--- NOTE | 2024-07-04 04:00 | PTCARENOTE ---
Pt awake and conversant this am. Pt asking what happened, states he has no recollection of how he ended up in hospital, reality orientation provided. CHG bath provided. NIV mask removed, oral care complete. pt positioned in bed per comfort. AM lab
work obtained. Pt denies any complaints at this time. vital signs stable. Will continue to monitor.
[2024-07-04 04:01] LABS: Hematocrit 42.5 % (39.0-52.0); Hemoglobin 14.7 g/dL (13.0-18.0); Mean Corp Hgb Conc. 34.6 g/dL (33.0-37.0); Mean Corpuscular Hgb 28.9 pg (27.0-31.0); Mean Corpuscular Volume 83.5 fL (80.0-94.0); Mean Platelet Volume 11.4 fL (7.4-10.4); Platelet Count 121 10^3/uL (130-400); Red Blood Cell Count 5.09 10^6/uL (4.70-6.10); Red Cell Dist. Width 13.7 % (11.5-14.5); White Blood Cell Count 14.3 10^3/uL (4.8-10.8)
[2024-07-04 04:02] LABS: Venous Blood Gas pCO2 93 mmHg (35-48)
[2024-07-04] MEDS: DECADRON 4 MG IV ×3 (04:22→21:32)
[2024-07-04] MEDS: ZOSYN 50 IV ×4 (04:22→21:34)
[2024-07-04 04:23] LABS: ALT (SGPT) 96 U/L (0-50); AST (SGOT) 77 U/L (17-59); Albumin 4.1 g/dl (3.5-5.0); Alkaline Phosphatase 54 U/L (38-126); Blood Urea Nitrogen 23 mg/dl (9-20); Calcium 9.2 mg/dl (8.4-10.2); Carbon Dioxide 38 mmol/L (22-30); Chloride 98 mmol/L (98-107); Direct Bilirubin 0.2 mg/dl (0.0-0.4); Estimated Creatinine Clearance 120 ml/min; Glucose 134 mg/dl (70-99); Phosphorus 4.6 mg/dl (2.5-4.5); Potassium 4.9 mmol/L (3.5-5.1); Sodium 142 mmol/L (135-145); Total Bilirubin 0.8 mg/dl (0.2-1.3); Total Protein 8.6 g/dl (6.3-8.2); eGFR > 60.00
[2024-07-04] MEDS: NOVOLOG FLEXPEN-MODERATE RESISTANCE SC ×2 (05:52→18:19)
[2024-07-04] MEDS: VAPONEFRIN NEBS 0.5 ML INH (05:53)
[2024-07-04 06:01] LABS: Glucose - Point of Care 131 mg/dl (70-99)
--- NOTE | 2024-07-04 07:28 | W.PN.INTV ---
Today's Communication / Plan
Recommendations
Continue AVAPS nightly and 2 hour use during the day
ENT consult
Check procal, to evaluate further need for abx
Decrease IV steroids
Continue daily NIF/VC measurements
ET CO2 monitoring
Neuro following for further management
Assessment
-
64-year-old male former tobacco smoker with a PMHx of neuromuscular disease (suspected MG vs ALS), chronic hypercapnic respiratory failure on home AVAPS with baseline pCO2 ~60s, vocal cord dysfunction with right sided vocal cord paralysis +
left-sided vocal cord paresis and hypertension who presents with syncopal event. Per the son, Yevgeniy, patient was out walking his dog and then after coming back he felt very short of breath. He then turned blue and passed out in front of the son.
Pulse was never lost. Patient was unresponsive and EMS was called and patient was brought here to the ER for further evaluation. Patient was bagged en route here to the ER and was more arousable once he got here to the hospital. Patient was found
to be in severe hypercapnic respiratory failure and started on BiPAP. CXR showed no acute cardiopulmonary disease. Neurology was consulted and started IVIG given concern for myasthenia crisis. He was also started on systemic steroids and
nebulized bronchodilators. He was admitted to the ICU for further care and cutch cleaner services now consulted for additional management/recommendations.
Acute on chronic hypercapnic respiratory failure likely due to stridor with laryngeal spasm in the setting of chronic neuromuscular disease
Acute respiratory failure with hypoxia
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
Leukocytosis
Metabolic alkalosis due to chronic hypercapnic respiratory failure
Hyperglycemia
Transaminitis
Chronic conditions TELEVISION JOURNALIST:
NM-disease (suspected myasthenia gravis vs ALS)
Vocal cord dysfunction with history of right-sided vocal cord paralysis and left-sided vocal cord paresis
Chronic hypercapnic respiratory failure on home AVAPS
Former tobacco smoker (quit 2 years ago with [id number] history)
Hypertension
Plan:
Acute on chronic hypercarbia noted
Continue home AVAPS , family to bring in his unit from home
Low threshold to intubate - currently his pH + pCO2 are trending in the right direction and he remains arousable and is protecting his airway, hence no need to intubate at the moment
Continue ETCO2 monitoring
Repeat ABG to correlate with pleth on end tidal
Wear AVAPs with naps
Continue with DuoNebs TID
NPO, use PEG only, was still taking meds PO at home
Reviewed with family
Aspiration precautions while keeping HOB >30-45�
Speech following
Possible aspiration PNA
Currently on Zosyn however CXR shows no evidence of PNA.
Given his leukocytosis, continue ABx for now but if he remains afebrile over next 1-2 days and HDN stable, then DC ABx at that time
Check procal, if negative, can stop
Neurology consulted and there was concern for myasthenic crisis.
IVIG started and neurology recommends to stop Mestinon + glycopyrrolate
Continue Decadron 4mg IV q6hr, decrease dose to q12 with plan for rapid taper if not indication from neurologic perspective
Continue VC/NIF checks daily, last NIF -
VC paralysis known to family
Known to [facility]
Daughter requested consult as she notes they always perform a laryngoscopy when he is admitted
I discussed with them my concerns for acute on chronic hypercarbia with VCD and underlying NMD
Trach had been discussed with them in past but not recommended yet
I think it is warranted in this situation given presumed failure of AVAPs to control acute decompensation despite compliance with use
I discussed this with daughter and she did not wish to bring this up to patient
PT/OT evals eventually
Follows at [facility] with pulmonary/ENT
Diagnostic Data
CXR 07/03/2024: No evidence of active cardiopulmonary disease.
------
Critical Care time 45 mins -- The patient is admitted for acute critical illness for the treatment of vital organ failure and/or prevention of further life-threatening conditions. Total care includes time spent in review of history, physical exam,
medications, hemodynamic/ventilator parameters, laboratory data, imaging and discussion with house staff, pharmacy, respiratory therapy, flight operations engineer, and nursing..
Subjective Dataa
Subjective Data
Date of Service:
Date of Service: July 04, 2024
Chief Complaint: Coiled Tubing Operator Follow Up
Subjective:
No acute events ON, remained on NIV until this AM
ABG showing acute on chronic retention
Daughter at bedside, gives history
Objective Data
Data Reviewed
Vital Signs / I&O / Oxygen:
Vital Signs
Temp Pulse Resp BP Pulse Ox
98.6 F 91 16 148/79 97
07/04/24 04:18 07/04/24 07:00 07/04/24 07:00 07/04/24 07:00 07/04/24 07:00
Intake and Output
07/03/24 07/04/24 07/05/24
06:59 06:59 06:59
Intake Total 500 / 500
Output Total 800 / 800
Balance -300 / -300
SaO2 [NIV (Non Invasive 96
Ventilation)]
SaO2 97
Nasal Cannula flow liters per 6
minute
Physical Exam
General: Comfortable and Other (NAD)
HEENT: Normocephalic, Anicteric and Moist Mucous Membranes
Cardiovascular: S1-S2 and Regular Rhythm
Respiratory: Clear and Non-Labored Respirations
GI: Soft, Non Distended and Non Tender
Neurology: Awake, Alert, Oriented and No Motor Deficits
Skin: Warm, Dry and Good Color
Labs/Micro/Reports
Lab Data
07/04/24 03:47
07/04/24 03:47
Laboratory Results
07/03/24
12:52
PT 13.4
INR 1.04
APTT 27.0
[2024-07-04] MEDS: LOPRESSOR 50 MG TUBE (07:32)
[2024-07-04] MEDS: NSS (PRESERVATIVE FREE) 10 ML IV (07:33)
[2024-07-04] MEDS: PROTONIX IV 40 MG IV (07:33)
[2024-07-04 08:22] LABS: Glycohemoglobin (HgbA1c) 5.6 % (4.0-5.6)
--- NOTE | 2024-07-04 09:00 | PTCARENOTE ---
Rec'd care of patient at 0700. Patient alert and oriented. MAEx4. NSR/ST on tele monitor. Rate in the 90-100's. No edema. Pulses palpable. Rec'd patient on NIV. Rate 18, TV 620, PEEP 8, FiO2 40%. Weaned to 2L nc around 0755 by RT. Patient states he
is not at his baseline breathing but denies discomfort. Lung sounds diminished throughout with scattered rhonchi. Productive cough. Thick, christensen secretions. +BS. Peg clamped. Voiding via urinal. RAC and LFA INT flushed and capped. Daughter and at
bedside, updated on plan of care.
--- NOTE | 2024-07-04 09:24 | PTOTSP ---
CONCRETE FORM SETTER Note
Patient is a 64 year old male with chronic dysphagia/PEG with PMH of neuromuscular disease, chronic respiratory failure, and vocal cord dysfunction. Patient admitted with acute on chronic hypercapnic and hypoxic respiratory failure.
Fijian toll bridge attendant ID #[id number], name Debra, utilized via Language Line at patient request. Patient reported he has had multiple prior swallowing evaluations (see patient care note) with NPO recommendation. All nutrition/hydration is via PEG.
Patient took pills orally (whole with water by mouth) at home as he stated this was easier than crushing/administering via PEG. Recommended patient take medications via PEG given acute on chronic respiratory failure, chronic dysphagia and
aspiration risks. Patient verbalized agreement.
Dysphagia evaluation is not warranted at this time. Administer medications via non-oral means.
[2024-07-04 10:21] LABS: Creatine Phosphokinase 67 U/L (55-170)
[2024-07-04 11:09] LABS: Vitamin B12 727 pg/ml (239-931)
--- NOTE | 2024-07-04 11:17 | CM ---
Cm met with pt, spouse/Melissa and dtr Neda/[phone] bedside
Pt and spouse resides in [facility] [place] and were babysitting local grandchildren when 911 was called
Pt resides with his spouse in a [place] with 4 [address]
Pt is independent with his ADLs- no ADs
Pt has a peg tube/tube feeds from [place] which he self cares for
Hx with [place] [facility]
Pt also has his home auto-pap bedside
Pt with Rx coverage through [employer] ID#[id number]
No financial insecurities
PCP- Samantha Khoury
Rx- Abbey/Gerardo
Discharge Disposition- home, follow for needs
--- NOTE | 2024-07-04 11:24 | PTCARENOTE ---
Patient resting comfortably in bed. No complaints. Placed on home NIV machine by RT. Vitals stable. Pulse ox 95%. Inspiratory wheeze upon reassessment. ABG sent. ST on tele monitor. Rate in the 100's. No other changes in assessment. ENT consult
placed by Corporate Account Executive.
[2024-07-04 11:27] LABS: B.E. 12.6 mmol/L; HCO3 39.8 mmol/L (21-28); PCO2 60 mmHg (35-48); PO2 180 mmHg (83-108); pH 7.43 (7.35-7.45)
--- NOTE | 2024-07-04 12:18 | W.PN.NEURO.1 ---
Today's Communication / Plan
-
IVIG day 2
Incentive spirometry
Oxygen
Neuro Assessment/Plan
Assessment
64-year-old male with history of HTN, Myasthenia, with chronic hypercapnic respiratory failure on home average volume assured PS. vocal cord dysfunction with right vocal cord paralysis and left vocal cord paresis, who was admitted following a
syncopal event. While he was walking his dog he became short of breath. and after he returned home He then turned blue and passed out.. . Patient was unresponsive but had a pulse
EMS was called and patient was brought here to the ER for further evaluation. Patient was bagged en route here to the ER and was more arousable once he got here to the hospital.
Patient had severe hypercapnic respiratory failure and started on BiPAP. He also had elevated white count with elevated blood sugars and elevated liver enzymes
Plan
Continue IVIG day 2
Respiratory support
IV Decadron 4 mg every 6
IV fluids
IV Zosyn
Subjective/Objective
Subjective Data
Date of Service: July 04, 2024
Patient's respiratory status has improved
Objective Data
Vital Signs
Temp Pulse Resp BP Pulse Ox
36.6 C 93 20 111/75 96
07/04/24 07:32 07/04/24 11:00 07/04/24 11:00 07/04/24 11:00 07/04/24 11:00
Lab Results
07/04/24 03:47
07/04/24 03:47
PT 13.4 Sec (11.4-14.6) 07/03/24 12:52
INR 1.04 07/03/24 12:52
APTT 27.0 Sec (23.4-35.0) 07/03/24 12:52
Sodium 142 mmol/L (135-145) 07/04/24 03:47
Potassium 4.9 mmol/L (3.5-5.1) 07/04/24 03:47
BUN 23 mg/dl (9-20) H 07/04/24 03:47
Glucose 134 mg/dl (70-99) H 07/04/24 03:47
Calcium 9.2 mg/dl (8.4-10.2) 07/04/24 03:47
Phosphorus 4.6 mg/dl (2.5-4.5) H 07/04/24 03:47
Vitamin B12 727 pg/ml (239-931) 07/04/24 03:47
Patient Allergies
succinylcholine Allergy (Verified 07/03/24 13:12)
Unknown
Physical Exam
-
General: Well Developed and Well Nourished
Eyes: Able to visualize OU, Unremarkable and Round OU
HEENT: Normocephalic, Atraumatic and Anicteric
Neck: No Bruits Bilaterally
Respiratory: Clear to Auscultation and Decreased Breath Sounds
Cardiac: Regular Rhythm and No Murmur
GI: Normal Bowel Sounds
Skin: Unremarkable
Extremities: No Clubbing
Psych: Unremarkable
Extended Neurological Exam
Mood & Affect: Mood Unremarkable, Affect Unremarkable and Anxious
Attention Span & Concentration: Awake, Alert and Closes Eyes after Stimulation
Memory: Unremarkable and Able to Recall
Tremor: Hand Tremor Absent and Head Tremor Absent
Involuntary Movement: None
Speech: Quality Unremarkable and Mildly Reduced Output
Cranial Nerve II: Left Eye: Pupillary Reactivity Unremarkable, Pupillary Size Unremarkable and Visual Rogers Grossly Intact
Cranial Nerve II: Right Eye: Pupillary Reactivity Unremarkable, Pupillary Size Unremarkable and Visual Rogers Grossly Intact
Cranial Nerves III, IV, : Extraocular Movement: Extraocular Movement Full in all Directions, Ptosis on Left and Ptosis on Right
Cranial Nerve V: Facial Sensation: Facial Sensation Unremarkable to Cold
Cranial Nerve VII: Facial Symmetry: Normal Facial Symmetry
Cranial Nerve VIII: Hearing: Unremarkable Hearing to Normal Conversational Volume
Cranial Nerves IX, X: Palate Movement: Palate Elevation Symmetric
Cranial Nerve XI: Shoulder Shrug: Unremarkable
Cranial Nerve XII: Tongue Protusion: Midline
Muscle Strength, Overall: Full Throughout
Muscle Bulk & Tone: Bulk Unremarkable and Tone Unremarkable
Pronator Drift: No Drift in Upper Extremities and No Drift in Lower Extremities
Deep Tendon Reflexes: Unremarkable Throughout
Cold Sensation: Unremarkable
Vibration Sensation: Unremarkable
Touch Sensation: Unremarkable
Coordination: [id number] Testing Unremarkable
Babinski Sign: Absent Bilaterally
Gait & Station: Up from Lying with Difficulty
Modified Anton Score (MRS)
-
Modified Anton Scale (mRS): Moderately severe disability. Unable to attend to bodily needs/walk.
Score: 4
[2024-07-04] MEDS: GAMMAGARD 300 IV (12:30)
[2024-07-04] MEDS: NOVOLOG FLEXPEN-MODERATE RESISTANCE 1 UNITS SC (12:40)
[2024-07-04 12:52] LABS: Glucose - Point of Care 158 mg/dl (70-99)
--- NOTE | 2024-07-04 12:59 | PTCARENOTE ---
IVIG infusing as ordered. VSS.
[2024-07-04] MEDS: DUONEB INH (13:05)
[2024-07-04] MEDS: MESTINON 30 MG PO ×3 (13:05→21:34)
[2024-07-04 13:42] LABS: Procalcitonin 0.88 ng/ml (0.0-0.25)
--- NOTE | 2024-07-04 14:22 | W.PN.HOSP.TC ---
Addendum entered and electronically signed by Tammy Hawley MD 07/04/24 15:41:
64-year-old with history of neuromuscular disease presented with syncope. He was walking the dog and became short of breath then turned blue and passed out in front of the son. Never lost pulse. Patient was bagged by EMS and brought in. He
follows with ENT and pulmonary at [place] patient was found to be in severe hypercapnic respiratory failure and admitted to ICU.
I personally performed a history and physical exam of the patient and discussed management with the resident. I reviewed the resident's note and agree with the documented findings and plan of care HPI/CC except for changes in my documentation
Seen earlier, late documentation
CXR reviewed by me
CVS: S1-S2 normal
Chest: CTA B/L
Abdomen: Soft, NT / Bowel sounds present
Extremities: No edema, normal pulses
FISH ICER: strength okay, B/L Hyperreflexia
# Acute on chronic hypercapnic respiratory failure secondary to stridor/laryngeal spasm/vocal cord paralysis
Syncope due to above
Acute hypoxic respiratory failure
He had been intubated 5 times in a span of 10 months in 2022
History of neuromuscular disease
Started on Decadron 4 mg IV every 6 hours
Aspiration precautions
On antibiotics for possible aspiration
If repeat x-ray does not show pneumonia-DC antibiotics
Follows with [facility]
ENT consult because of problems with vocal cord
End-tidal CO2 monitoring
# Neuromuscular disease-sero
Follows with Dr. Jyothi Wu and Dr. Fu .
Neurology consulted for concern of myasthenia crisis
IVIG started by neurology and recommended to stop Mestinon and glycopyrrolate
Patient is also maintained on IVIG to every 2 weeks, prednisone, Mestinon and glycopyrrolate and Bactrim prophylaxis
MRI of the brain when stable
(Pt had dysphagia in August 2021, initially at to have ALS treated with riluzole, repeat EMG/nerve condition study did not show ALS)
PEG tube was placed december 2023
# Sleep apnea on NIPPV at night
# Metabolic alkalosis
# Hypertension-on metoprolol 50 twice daily
# Hyperlipidemia- atorvastatin ON HOLD
# Transaminitis-Follow
# Hyperglycemia-Hemoglobin A1c 5.6
# Microscopic hematuria-follow
# Thrombocytopenia-follow
# Ex-smoker
# DVT prophylaxis-Lovenox
# Full code
Discussed with RN
Discussed with and daughter at bedside
Total Critical Care Time38 minutes. I was immediately available to the patient and staff. I personally examined, reviewed labs, diagnostic images/reports, interpretations, treatment plans, discussed patient care with other providers and family ,
entered orders as appropriate and documented the medical record.
Original Note:
Today's Communication/Plan
-
.
Assessment / Plan
Assessment / Plan
Assessment
Acute on chronic hypercapnic respiratory failure possibly secondary to Neuromuscular disease
Metabolic Alkalosis secondary to above
Neuromuscular disease
Essential Hypertension
Leukocytosis
Transaminitis
Conditions present prior to admission.
Neuromuscular disease
Vocal cord dysfunction
Chronic Hypercarbia on Home AVAPS
Former tobacco smoker w [id number] history
PEG in Place
Hypercholesterolemia
Plan
#Acute on chronic hypercapnic respiratory failure possibly secondary to Neuromuscular disease
#Metabolic Alkalosis secondary to above
-Home AVAPS, continue during sleep, and at bedtime
-ABGs pending
-Continue with DuoNebs
#Neuromuscular disease
#Chronic Dysphagia w PEG in place
-Follows Dr. Jyothi Wu
-Neurology input appreciated, Stop therapy with Mestinon, Glycopyrrolate
-IVIG, prednisone,
-Speech eval, following
#Leukocytosis
-On PipTazo.
-Aspiration precautions.
-Trend WBC.
#Essential hypertension
-Continue metoprolol
#Transaminitis- Trend
#Chronic Hypercarbia on Home AVAPS
#Former tobacco smoker w [id number] history
#PEG in Place
DVT prophylaxis-Lovenox
CODE STATUS-full code
Anticipated Discharge: > 48 hours
Subjective/Interval History
-
Date of Service: July 04, 2024
Objective Data
-
Labs:
Laboratory Results
07/04/24 07/04/24
03:47 11:04
WBC 14.3 H
Hgb 14.7
Hct 42.5
Plt Count 121 L D
HCO3 39.8 H
Sodium 142
Potassium 4.9
Chloride 98
Carbon Dioxide 38 H
BUN 23 H
Creatinine 0.7
Glucose 134 H
Calcium 9.2
Total Bilirubin 0.8
AST 77 H
ALT 96 H
Alkaline Phosphatase 54
Vital Signs:
Vital Signs
Temp Pulse Resp BP Pulse Ox
97.9 F 85 18 97/69 95
07/04/24 12:00 07/04/24 14:06 07/04/24 14:00 07/04/24 14:06 07/04/24 14:00
I&O
07/03/24 07/04/24 07/05/24
06:59 06:59 06:59
Intake Total 500 / 500 520 / 520
Output Total 800 / 1100 700 / 700
Balance -300 / -600 -180 / -180
Review of Systems
-
All other systems: Reviewed and negative (Except as documented)
Physical Exam
-
General: No Apparent Distress and Comfortable
Respiratory: Clear to Auscultation; Negative Crackles
Cardiac: S1/S2
GI: Soft, Nontender and Nondistended
Skin: Warm and Dry
Neuro: AO x 3
Psych: Calm
[2024-07-04] MEDS: ProAmatine 5 MG PO (16:25)
--- NOTE | 2024-07-04 16:26 | PTCARENOTE ---
Around 1600, patient's HR up to 110's and BP dropped to 70/50's. Asymptomatic. Boom Master notified. Order for 5mg Midodrine PRN ordered for SBP <90.
--- NOTE | 2024-07-04 17:43 | PTCARENOTE ---
ENT at bedside.
[2024-07-04] MEDS: LOVENOX 40 MG SC (17:56)
[2024-07-04 18:31] LABS: Glucose - Point of Care 132 mg/dl (70-99)
--- NOTE | 2024-07-04 18:37 | PTCARENOTE ---
Patient complaining of discomfort/soreness on left side of chest. Per son, patient received compressions briefly upon collapse last night. ADDING MACHINE MECHANIC notified. RN advised to administer Tylenol for pain control.
--- NOTE | 2024-07-04 18:44 | CON.MD ---
Consultation - Medical
-
Chief complaint: Respiratory difficulty, myasthenia gravis, vocal cord problems
History of present illness: This patient is a 64-year-old gentleman with a history of several years of weakness and respiratory difficulties. He is followed by Dr. Sunil mcintyre at the [facility] for vocal cord dysfunction causing
some respiratory distress. He has been noted to have right vocal cord paralysis and in the recent past was thought to have 75% remaining function of his left vocal cord. He has recently noticed a decrease in his exercise capacity and a couple of
days ago took his daughter's small dog out for a walk. The dog was pulling and the patient ended up becoming cyanotic and confused. He was brought to the emergency room by ambulance. He is doing better now. He uses NIPPV at night. I was asked
to see the patient to evaluate his present vocal cord function.
Chronic illnesses: Myasthenia gravis, acute hypercapnic respiratory failure
Allergies: Succinylcholine
Home medications: Atorvastatin 20 mg daily
glycopyrrolate 1 mg per feeding tube 3 times daily
Metoprolol tartrate 50 mg p.o. twice daily
Prednisone 40 mg every 48 hours
Pyridostigmine bromide 60 mg per feeding tube 3 times daily
Pyridostigmine bromide 180 mg per feeding tube at bedtime
Bactrim double strength 1 per feeding tube Thursday was a Thursday
Tadalafil 5 mg per feeding tube daily
Hospitalizations: For myasthenia gravis and respiratory distress
Family history: Asked and is noncontributory for this problem
Past surgical history: Noncontributory
Review of systems: Dyspnea with exertion, denies chest pain, denies abdominal pain
Physical examination:
Head: Atraumatic and normocephalic
Eyes: Extraocular movements are intact and pupils are equal and reactive to light
Nose: Normal mucosa
Oral cavity: Normal mucosa
Neck: Supple without adenopathy
Ears: Normal
Cranial nerves: Intact except vocal cord function
Thyroid gland: Normal
Salivary glands: Normal
Procedure: Flexible laryngoscopy
Flexible laryngoscopy was performed through the patient's left nose. The patient tolerated this well. Good visualization was achieved. There is minimal pooling of secretions. Right vocal cord appears to be paralyzed and left vocal cord shows
approximately 25 to 50% remaining function. There are no tumors or suspicious lesions. No abnormal masses are noted.
Impression/plan: This 64-year-old gentleman has bilateral vocal cord dysfunction with total paralysis on the right side and 25 to 50% remaining function on the left side resulting in dyspnea on exertion because of inability to drawn enough air. He
also has acute hypercapnic respiratory failure. He will continue to use his NIPPV. We discussed the possibility of a tracheotomy which may be helpful for him at some point. I do not believe he is an imminent danger as long as he limits his
activity. When he becomes short of breath he needs to sit down. I think that long-term his exercise tolerance would be better with the tracheotomy. The patient is followed by Dr. Sunil Estrella at the [facility]. I will see the
patient back as needed.
--- NOTE | 2024-07-04 21:00 | PTCARENOTE ---
Resumed care of pt this evening. Received pt on 2L of O2 via nasal cannula and satting at 93% pulse ox. Pt is A&Ox3, can move all 4 extremities, and can make needs known. Pt is in ST on tele monitor, has a distant and irregular apical, and pedal
pulses are present bilaterally via doppler. On auscultation pt's lungs sound diminished at the bases bilaterally. Pt receiving tube feed bolus via PEG tube. Abdomen is round w/ active BS. Pt voiding alycia colored urine in urinal. Skin is C/D/I.
[2024-07-04] MEDS: LOPRESSOR TUBE (21:33)
[2024-07-04 23:59] LABS: Glucose - Point of Care 148 mg/dl (70-99)
[2024-07-05] VITALS (33 sets, daily range): BP systolic 115–196; BP diastolic 73–109; BMI 26.0
--- NOTE | 2024-07-05 | PTCARENOTE ---
Pt wearing personal Trilogy mask for HS and is tolerating satting at 93% pulse ox.
[2024-07-05] MEDS: NOVOLOG FLEXPEN-MODERATE RESISTANCE SC ×2 (00:20→17:07)
--- NOTE | 2024-07-05 02:45 | PTCARENOTE ---
Upon reassessment pt is resting comfortably and continues to tolerate trilogy mask satting at 93% pulse ox.
[2024-07-05] MEDS: VENTOLIN NEBULES 2.5 MG INH (03:26)
--- NOTE | 2024-07-05 03:30 | PTCARENOTE ---
At approx. 0330 this RN went to check on pt after hearing trilogy mask alarm going off and found the pt struggling to breath and become unresponsive. Pt became apneic and pulse ox dropped to the 30s. Pt also became cyanotic. Respiratory was notified
and this RN began bagging the pt. until he became responsive. Episode lasted approximately 10 mins. After pt returned to baseline neuro status he stated 'When I fall into a deep sleep, I can feel my muscles stop working.' PRESSER FIRST was notified of event.
--- NOTE | 2024-07-05 04:00 | RESPNOTE ---
PT had an episode of apnea that lasted several minutes and the PT turned blue, POX dropped rapidly and he had to be bagged until he came around. PT was subsequently placed on a 6 L nasal cannula with end tidal and 6 L O2 adapter was added to his
trilogy machine and he was placed on that. Will continue to monitor resp status.
[2024-07-05] MEDS: ZOSYN 50 IV ×4 (04:53→22:13)
[2024-07-05 05:08] LABS: Hemoglobin 13.7 g/dL (13.0-18.0); Mean Corp Hgb Conc. 35.1 g/dL (33.0-37.0); Mean Corpuscular Hgb 28.8 pg (27.0-31.0); Mean Corpuscular Volume 81.9 fL (80.0-94.0); Mean Platelet Volume 11.7 fL (7.4-10.4); Platelet Count 122 10^3/uL (130-400); Red Blood Cell Count 4.76 10^6/uL (4.70-6.10); Red Cell Dist. Width 13.4 % (11.5-14.5); White Blood Cell Count 10.8 10^3/uL (4.8-10.8)
[2024-07-05 05:30] LABS: Blood Urea Nitrogen 27 mg/dl (9-20); Calcium 9.1 mg/dl (8.4-10.2); Carbon Dioxide 37 mmol/L (22-30); Chloride 97 mmol/L (98-107); Estimated Creatinine Clearance 94 ml/min; Glucose 186 mg/dl (70-99); Potassium 3.9 mmol/L (3.5-5.1); Sodium 141 mmol/L (135-145); eGFR > 60.00
[2024-07-05] MEDS: NOVOLOG FLEXPEN-MODERATE RESISTANCE 1 UNITS SC ×2 (06:52→12:03)
--- NOTE | 2024-07-05 07:15 | W.PN.INTV ---
Today's Communication / Plan
Recommendations
Events noted, remains on NIV
Low threshold for intubation
Continue treatment in terms of MG flare
Transfer accepted to [facility], awaiting bed
Family updated
Assessment
-
64-year-old male former tobacco smoker with a PMHx of neuromuscular disease (suspected MG vs ALS), chronic hypercapnic respiratory failure on home AVAPS with baseline pCO2 ~60s, vocal cord dysfunction with right sided vocal cord paralysis +
left-sided vocal cord paresis and hypertension who presents with syncopal event. Per the son, Yevgeniy, patient was out walking his dog and then after coming back he felt very short of breath. He then turned blue and passed out in front of the son.
Pulse was never lost. Patient was unresponsive and EMS was called and patient was brought here to the ER for further evaluation. Patient was bagged en route here to the ER and was more arousable once he got here to the hospital. Patient was found
to be in severe hypercapnic respiratory failure and started on BiPAP. CXR showed no acute cardiopulmonary disease. Neurology was consulted and started IVIG given concern for myasthenia crisis. He was also started on systemic steroids and
nebulized bronchodilators. He was admitted to the ICU for further care and [facility] now consulted for additional management/recommendations.
Acute on chronic hypercapnic respiratory failure likely due to stridor with laryngeal spasm in the setting of chronic neuromuscular disease
Acute respiratory failure with hypoxia
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
Leukocytosis
Metabolic alkalosis due to chronic hypercapnic respiratory failure
Hyperglycemia
Transaminitis
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
NM-disease (suspected myasthenia gravis vs ALS)
Vocal cord dysfunction with history of right-sided vocal cord paralysis and left-sided vocal cord paresis
Chronic hypercapnic respiratory failure on home AVAPS
Former tobacco smoker (quit 2 years ago with 50-htou-hfih history)
Hypertension
Plan:
Acute on chronic hypercarbia noted
On home AVAPS, change to NIV given events
Low threshold to intubate - reviewed with anesthesia about high risk airway
Continue ETCO2 monitoring
Continue with DuoNebs TID
Appreciate ENT eval- remaining functional cord only at 25-50% function, down from reported 75%
NPO, use PEG only, was still taking meds PO at home
Reviewed with family
Aspiration precautions while keeping HOB >30-45�
Speech following
Possible aspiration PNA
Currently on Zosyn however CXR shows no evidence of PNA.
Given his leukocytosis, continue ABx for now but if he remains afebrile over next 1-2 days and HDN stable, then DC ABx at that time
Check procal, 0.88-- can complete Augmentin next 2 days
Neurology consulted and there was concern for myasthenic crisis.
IVIG started and neurology recommends to stop Mestinon + glycopyrrolate
Continue Decadron 4mg IV q6hr, decrease dose to q12 with plan for rapid taper if not indication from neurologic perspective
Continue VC/NIF checks daily, last NIF -
VC paralysis known to family
Known to [facility]
Daughter requested consult as she notes they always perform a laryngoscopy when he is admitted
I discussed with them my concerns for acute on chronic hypercarbia with VCD and underlying NMD
Trach had been discussed with them in past but not recommended yet
I think it is warranted in this situation given presumed failure of AVAPs to control acute decompensation despite compliance with use
I discussed this with daughter and she did not wish to bring this up to patient 07/04/24
Now with new decompensation, I implored family to consider trach as this will ultimately result in further apnea and possible cardiac arrest
They would like to transfer to [facility]
Discussed case with care team, [facility] accepted, now awaiting bed
PT/OT evals eventually
Follows at [facility] with pulmonary/ENT
Diagnostic Data
CXR 07/03/2024: No evidence of active cardiopulmonary disease.
------
Critical Care time 76 mins -- The patient is admitted for acute critical illness for the treatment of vital organ failure and/or prevention of further life-threatening conditions. Total care includes time spent in review of history, physical exam,
medications, hemodynamic/ventilator parameters, laboratory data, imaging and discussion with house staff, pharmacy, respiratory therapy, biotechnician, and nursing. Prolonged discussion with care team and transfer center to [facility].
Subjective Dataa
Subjective Data
Date of Service:
Date of Service: July 05, 2024
Chief Complaint: Blankmaker Follow Up
Subjective:
Event early this AM noted, apneic for 2 mins with cyanosis despite Trilogy requiring bagging
Changed to NIV but still not receiving volumes
ETCO2 higher this AM
Objective Data
Data Reviewed
Vital Signs / I&O / Oxygen:
Vital Signs
Temp Pulse Resp BP Pulse Ox
99.0 F 104 19 165/93 92
07/05/24 03:29 07/05/24 07:00 07/05/24 07:00 07/05/24 07:00 07/05/24 07:00
Intake and Output
07/04/24 07/05/24 07/06/24
06:59 06:59 06:59
Intake Total 500 / 500 1560 / 1560
Output Total 800 / 1100 2039 / 2040
Balance -300 / -600 -480 / -480
SaO2 [NIV (Non Invasive 96
Ventilation)]
SaO2 92
Nasal Cannula flow liters per 6
minute
Physical Exam
General: Comfortable and Other (NAD)
HEENT: Normocephalic, Anicteric and Moist Mucous Membranes
Cardiovascular: S1-S2 and Regular Rhythm
Respiratory: Clear and Non-Labored Respirations
GI: Soft, Non Distended and Non Tender
Neurology: Awake, No Motor Deficits and Lethargic
Skin: Warm, Dry and Good Color
Labs/Micro/Reports
Lab Data
07/05/24 04:46
07/05/24 04:46
Laboratory Results
07/04/24
11:04
pH 7.43
pCO2 60 H
pO2 180 H
HCO3 39.8 H
O2 Delivery Level
--- NOTE | 2024-07-05 07:55 | RESPNOTE ---
patient off Trilogy and on 1L O2 with ETCO2- 45, SpO2 93%
[2024-07-05] MEDS: DUONEB 3 ML INH ×3 (07:59→19:39)
--- NOTE | 2024-07-05 08:12 | W.PN.HOSP.TC ---
Addendum entered and electronically signed by Tammy Hawley MD 07/05/24 13:28:
64-year-old with history of neuromuscular disease presented with syncope. He was walking the dog and became short of breath then turned blue and passed out in front of the son. Never lost pulse. Patient was bagged by EMS and brought in. He
follows with ENT and pulmonary at [place] patient was found to be in severe hypercapnic respiratory failure and admitted to ICU.
I personally performed a history and physical exam of the patient and discussed management with the resident. I reviewed the resident's note and agree with the documented findings and plan of care HPI/CC except for changes in my documentation
Seen earlier, late documentation
CXR reviewed by me
CVS: S1-S2 normal
Chest: CTA B/L
Abdomen: Soft, NT / Bowel sounds present
Extremities: No edema, normal pulses
PBX REPAIRER: strength okay, B/L Hyperreflexia
# Acute on chronic hypercapnic respiratory failure secondary to stridor/laryngeal spasm/vocal cord paralysis
Syncope due to above
Acute hypoxic respiratory failure
He had been intubated 5 times in a span of 10 months in 2022
History of neuromuscular disease
Started on Decadron 4 mg IV every 6 hours
Aspiration precautions
On antibiotics for possible aspiration-On antibiotics, elevated Procal.
Follows with [place] [facility]
ENT consult because of problems with vocal cord
End-tidal CO2 monitoring
A dose of neostigmine given and pyridostigmine resumed by neurology
And evaluated-patient has vocal cord paralysis 100% on 1 side and 25-50% on the left side.
Had another episode of apnea last night
Tracheostomy recommended
# Neuromuscular disease-sero
Follows with Dr. Jyothi Wu and Dr. Fu .
Neurology consulted for concern of myasthenia crisis
IVIG started by neurology , restarted Mestinon and glycopyrrolate for secretions
Patient is also maintained on IVIG to every 2 weeks, prednisone, Mestinon and glycopyrrolate and Bactrim prophylaxis
MRI of the brain when stable
(Pt had dysphagia in August 2021, initially at to have ALS treated with riluzole, repeat EMG/nerve condition study did not show ALS)
PEG tube was placed december 2023
# Sleep apnea on NIPPV at night
# Hypertension-on metoprolol 50 twice daily
# Hyperlipidemia- atorvastatin ON HOLD
# Transaminitis-Follow
# Hyperglycemia-Hemoglobin A1c 5.6
# Microscopic hematuria-follow
# Thrombocytopenia-follow
# Ex-smoker
# DVT prophylaxis-Lovenox
# Full code
Discussed with RN
Discussed with daughter at bedside
D/W Neuro and Magnetic Resonance Imaging Director
Called [facility] transfer center as patient's family wants him to go to [facility] for tracheostomy. Patient is known to [place] [facility] and [facility]. Spoke to who is Magnetic Resonance Imaging Director Washing [employer]. Accepted patient. They have no beds.
Transfer forms signed , pt preferred daughter to sign. Reviewed with him that he could become unstable or apneic during transfer and this has to be taken into consideration also. They accept the risks and still wants to transfer.
Total Critical Care Time 50 minutes. I was immediately available to the patient and staff. I personally examined, reviewed labs, diagnostic images/reports, interpretations, treatment plans, discussed patient care with other providers and family ,
entered orders as appropriate and documented the medical record.
Original Note:
Today's Communication/Plan
-
.
Assessment / Plan
Assessment / Plan
Assessment
Acute on chronic hypercapnic respiratory failure possibly secondary to Neuromuscular disease
Metabolic Alkalosis secondary to above
Neuromuscular disease
Essential Hypertension
Leukocytosis
Transaminitis
Conditions present prior to admission.
Neuromuscular disease
Vocal cord dysfunction
Chronic Hypercarbia on Home AVAPS
Former tobacco smoker w [id number]-ecop history
PEG in Place
Hypercholesterolemia
Plan
#Acute on chronic hypercapnic respiratory failure possibly secondary to Neuromuscular disease
#Metabolic Alkalosis secondary to above
# Bilateral vocal cord dysfunction
-Home AVAPS, continue during sleep, and at bedtime
-Continue with DuoNebs
-Continue ETCO2 monitoring
-ENT consulted, recommending tracheotomy.
-Patient known to project management instructor Dr. Méndez and ENT Dr Barrios at [place]
-Family requesting patient gets transferred to [facility].
-Transfer started. Attending spoke to Dr Rivera at [facility] who has accepted patient.
#Neuromuscular disease(possible myasthenia gravis)
#Chronic Dysphagia w PEG in place
-Follows Dr. Jyothi Wu
-Neurology input appreciated, Stop therapy with Mestinon, Glycopyrrolate
-Decadron 4 mg IV every 6 hours
-Speech following
-Pyridostigmine 30 mg p.o. QID
#Leukocytosis
-On PipTazo.
-Aspiration precautions.
-Trend WBC.
-Chest x-ray today, if negative will DC antibiotics
#Essential hypertension
-Continue metoprolol
#Transaminitis- Trend
#Chronic Hypercarbia on Home AVAPS
#Former tobacco smoker w [id number]-[id number] history
#PEG in Place
DVT prophylaxis-Lovenox
CODE STATUS-full code
Anticipated Discharge: 24 - 48 hours
Subjective/Interval History
-
Date of Service: July 05, 2024
Objective Data
-
Labs:
Laboratory Results
07/05/24
04:46
WBC 10.8
Hgb 13.7
Hct 39.0
Plt Count 122 L
Sodium 141
Potassium 3.9
Chloride 97 L
Carbon Dioxide 37 H
BUN 27 H
Creatinine 0.9
Glucose 186 H
Calcium 9.1
Vital Signs:
Vital Signs
Temp Pulse Resp BP Pulse Ox
97.4 F 88 18 165/93 95
07/05/24 07:41 07/05/24 07:59 07/05/24 07:59 07/05/24 07:00 07/05/24 07:59
I&O
07/04/24 07/05/24 07/06/24
06:59 06:59 06:59
Intake Total 500 / 500 1560 / 1560
Output Total 800 / 1100 2039 / 2039
Balance -300 / -600 -480 / -480
Review of Systems
-
All other systems: Reviewed and negative (Except as documented)
Physical Exam
-
General: Comfortable
Respiratory: Clear to Auscultation
Cardiac: Regular Rhythm and S1/S2
GI: Soft, Nontender and Nondistended
Neuro: Awake
Psych: Calm
[2024-07-05] MEDS: NSS (PRESERVATIVE FREE) 10 ML IV (08:16)
[2024-07-05] MEDS: DECADRON 4 MG IV ×2 (08:16→19:44)
[2024-07-05] MEDS: PROTONIX IV 40 MG IV (08:16)
[2024-07-05] MEDS: MESTINON 30 MG PO ×4 (08:17→22:12)
[2024-07-05] MEDS: LOPRESSOR 50 MG TUBE ×2 (08:17→22:11)
--- NOTE | 2024-07-05 09:08 | PTCARENOTE ---
Assumed care of pt. Received pt on Home Trilogy Bipap. Changed to NIV V620/R18/EPAP8/30% due to apneic episode overnight. SpO2 98%. Pt is A&Ox3, can move all 4 extremities, and can make needs known. Pt is in ST on tele monitor, occasional PVCs. On
auscultation pt's lungs sound diminished at the bases bilaterally. Pt receiving tube feed bolus via PEG tube. Abdomen is round w/ active BS. Voiding in urinal. Scab on LFA present, covered with bandaid.
--- NOTE | 2024-07-05 10:56 | PTCARENOTE ---
Pt standing at side of bed without issue. To chair for approx 30min. back to bed as instructed by RT for NIV therapy.
Anesthesia notified about vocal cord paralysis in the event of emergency.
Hospitalist in contact with [facility] for transfer. [facility] accepting however currently at a lower priority.
[2024-07-05] MEDS: NON-FORMULARY ITEM 1 DROP RIGHT EYE (12:01)
[2024-07-05] MEDS: PROSTIGMIN 0.5 MG SC (12:01)
[2024-07-05] MEDS: GAMMAGARD 300 IV (12:04)
[2024-07-05 12:12] LABS: Glucose - Point of Care 172 mg/dl (70-99)
[2024-07-05] MEDS: ROBINUL 1 MG TUBE ×2 (13:27→22:11)
--- NOTE | 2024-07-05 13:46 | CM ---
Patient awaiting transfer to [facility]. Currently lower priority per nursing notes. CM will continue to follow for discharge planning needs.
Plan; awaiting transfer per chart review
--- NOTE | 2024-07-05 14:58 | PTCARENOTE ---
Tolerating intermittent NIV vs NC 1L. IVIG infused per order without issue.
--- NOTE | 2024-07-05 15:03 | W.PN.NEURO.1 ---
Today's Communication / Plan
-
Continue IVIG day 3
Respiratory support
IV Decadron 4 mg every 6
IV fluids
IV Zosyn
SC neostigmine 1 mg QID
Neuro Assessment/Plan
Assessment
64-year-old male with history of HTN, Myasthenia, with chronic hypercapnic respiratory failure on home average volume assured PS; vocal cord dysfunction with right vocal cord paralysis and left vocal cord paresis, who was admitted following a
syncopal event. While he was walking his dog he became short of breath. and after he returned home He then turned blue and passed out.
Currently on IVIG 12/07. Laryngoscope evaluation revealed vocal cord dysfunction bilaterally
Plan
Continue IVIG day 3
Respiratory support
IV Decadron 4 mg every 6
IV fluids
IV Zosyn
SC neostigmine 1 mg 4 times daily after trial dose of 0.5
Subjective/Objective
Subjective Data
Date of Service: July 05, 2024
Objective Data
Vital Signs
Temp Pulse Resp BP Pulse Ox
36.7 C 96 17 141/87 95
07/05/24 12:07 07/05/24 14:30 07/05/24 14:30 07/05/24 14:30 07/05/24 14:30
Lab Results
07/05/24 04:46
07/05/24 04:46
PT 13.4 Sec (11.4-14.6) 07/03/24 12:52
INR 1.04 07/03/24 12:52
APTT 27.0 Sec (23.4-35.0) 07/03/24 12:52
Sodium 141 mmol/L (135-145) 07/05/24 04:46
Potassium 3.9 mmol/L (3.5-5.1) 07/05/24 04:46
BUN 27 mg/dl (9-20) H 07/05/24 04:46
Glucose 186 mg/dl (70-99) H 07/05/24 04:46
Calcium 9.1 mg/dl (8.4-10.2) 07/05/24 04:46
Phosphorus 4.6 mg/dl (2.5-4.5) H 07/04/24 03:47
Vitamin B12 727 pg/ml (239-931) 07/04/24 03:47
Patient Allergies
succinylcholine Allergy (Verified 07/03/24 13:12)
Unknown
Physical Exam
-
General: Well Developed, Well Nourished and No Apparent Distress
Eyes: Able to visualize OU and Unremarkable
HEENT: Normocephalic and Atraumatic
Neck: Full Range of Motion
Extremities: No Clubbing, No Cyanosis and No Edema
Psych: Anxious
Extended Neurological Exam
Mood & Affect: Mood Unremarkable and Affect Unremarkable
Attention Span & Concentration: Awake, Alert, Interactive and No Difficulty with 2 Step Request
Memory: Unremarkable and Able to Recall
Tremor: Hand Tremor Absent and Head Tremor Absent
Involuntary Movement: None
Speech: Quality Unremarkable, Quantity Unremarkable and Rate of Production Unremarkable
Cranial Nerve II: Left Eye: Pupillary Reactivity Unremarkable, Pupillary Size Unremarkable and Visual Rogers Grossly Intact
Cranial Nerve II: Right Eye: Pupillary Reactivity Unremarkable and Visual Rogers Grossly Intact
Cranial Nerves III, IV, : Extraocular Movement: Extraocular Movement Full in all Directions and Ptosis on Right
Cranial Nerve V: Facial Sensation: Intact to Light Touch
Cranial Nerve VII: Facial Symmetry: Normal Facial Symmetry
Cranial Nerve VIII: Hearing: Unremarkable Hearing to Normal Conversational Volume
Cranial Nerves IX, X: Palate Movement: Palate Elevation Symmetric
Cranial Nerve XII: Tongue Protusion: Midline
Muscle Strength, Overall: Full Throughout and Reduced Throughout
Pronator Drift: No Drift in Upper Extremities and No Drift in Lower Extremities
Deep Tendon Reflexes: Unremarkable Throughout
Cold Sensation: Unremarkable
Vibration Sensation: Unremarkable
Touch Sensation: Unremarkable
Coordination: Ejbyre-wlhn-xrrrcl Testing Unremarkable and Reaches for Objects without Difficulty
Babinski Sign: Absent Bilaterally
Gait & Station: Unremarkable Arm Swing
--- NOTE | 2024-07-05 15:40 | PTCARENOTE ---
Audible stridor noted and increasing. Dr. Rubin and [place] RT notified.
[2024-07-05] MEDS: LOVENOX 40 MG SC (17:01)
[2024-07-05] MEDS: PROSTIGMIN 1 MG SC ×2 (17:02→22:13)
[2024-07-05 17:19] LABS: Glucose - Point of Care 125 mg/dl (70-99)
--- NOTE | 2024-07-05 19:30 | PTCARENOTE ---
Resumed care of pt this evening. Received pt on non invasive ventilator. Pt tolerating settings satting at 93% pulse ox. Pt is A&Ox3, can move all 4 extremities and can make needs known. Pt is NSR on tele monitor, has no edema, and palpable pedal
pulses. Pt has shallow respirations. On auscultation pt lungs sound diminished at the bases bilaterally. Pt is NPO and has a PEG tube in place. Pt has active BS. Pt voiding alycia colored urine in urinal. Skin is C/D/I.
[2024-07-06] VITALS (20 sets, daily range): BP systolic 67–143; BP diastolic 56–110
--- NOTE | 2024-07-06 | PTCARENOTE ---
[facility] called and notified that room is available for tsx. [facility] en route for transportation.
[2024-07-06] MEDS: NOVOLOG FLEXPEN-MODERATE RESISTANCE 3 UNITS SC (00:55)
[2024-07-06 01:04] LABS: Glucose - Point of Care 220 mg/dl (70-99)
[2024-07-06 01:08] LABS: O2 Saturation % 98.1 % (94-98); PO2 85 mmHg (83-108)
[2024-07-06 01:09] LABS: O2 Therapy 40
[2024-07-06 01:11] LABS: B.E. 13.1 mmol/L
[2024-07-06 01:12] LABS: HCO3 48.1 mmol/L (21-28); PCO2 > 115 mmHg (35-48); pH 7.19 (7.35-7.45)
--- NOTE | 2024-07-06 01:25 | W.PN.UPDATE ---
Update Note
Progress Note Update
0040 Pt desating and diaphoretic. Notable leak in patient�s home mask. �Change patient back to hospital mask for better seal. �O2 sat improved.�
0100 Notable increase in NIV support to maintain patient�s tidal volumes. �ABG ordered. �
0110 7.19/>115/85, Clinically = patient less responsive. Decision made to intubate (Updated computer programming manager and patient�s son of plan)�
0140 Patient intubated successful. �Daughter at bedside.�
0215 [facility] transport arrived�
[2024-07-06] MEDS: DIPRIVAN IV (01:48)
[2024-07-06] MEDS: LEVOPHED 250 IV (01:57)
--- NOTE | 2024-07-06 02:00 | PTCARENOTE ---
Upon reassessment at 0100 pt became diaphoretic, irritable, and less responsive. HR and BP also elevated. Pulse ox dropped to low 80s pulse ox. Respiratory and TIRE CHANGER AIRCRAFT notified of change. After ABG results, decision was made by TIRE CHANGER AIRCRAFT to proceed w/
intubation. Pt tolerated intubation and is now propofol gtt. infusing via rt peripheral IV site.
--- NOTE | 2024-07-06 02:01 | W.PN.ANESINT ---
Anesthesia Intubation Note
- Intubation Note
Intubation Note:
Diagnosis: hypercapnea, impending respiratory failure
Blade: [place] 4
Tube Size: 8.0 cuffed
Depth: 23 teeth
Side Taped: Right
Drugs Used: Prop - 100mg, lido 1% 50mg, Mt 50mg, jcarlos - 400mg
Grade View: 1
EtCO2 Present: yes
Atraumatic:
Attempts: one
Insertion Start and Stop Time: 149 -015
SaO2 Pre: 98
SaO2 Post: 98
Glidescope Used: yes
Other Airway Adjustments:
Pre-Oxygenated: yes
Portable Chest X-Ray:
RSI:
Suctioned:
Bilateral Breath Sounds Confirmed: yes
Vent Settings:
Settings per Dr. Kay Attending Physician
[2024-07-06] MEDS: DIPRIVAN 100 IV (02:22)
--- NOTE | 2024-07-06 02:45 | TRANSFER ---
Pt tsx'd out to [facility] via [facility]. Personal belongings were taken by pt's daughter. Pt's chart and paperwork taken w/ transport team. Report given to [facility] RN. Pt transferred to [facility], [address] in the [facility] bed
#[phone].
== END 2024-07-06 02:45 | disposition short-term general hospital (02) | DRG 154 ==
LOC: ICU 14:44
PROVIDERS: Internal Medicine; Nurse Practitioner Primary Care; Student in an Organized Health Care Education/Training Program; ADMITTING PHYSICIAN Hospitalist; ATTENDING PHYSICIAN Hospitalist; CONSULT PHYSICIAN Internal Medicine Critical Care Medicine; CONSULT PHYSICIAN Otolaryngology Facial Plastic Surgery; EMERGENCY PHYSICIAN Emergency Medicine; FAMILY PHYSICIAN Internal Medicine Cardiovascular Disease; OTHER PHYSICIAN Psychiatry & Neurology Neurology
DX: J38.01 Paralysis of vocal cords and larynx, unilateral (principal); G70.01 Myasthenia gravis with (acute) exacerbation; J96.22 Acute and chronic respiratory failure with hypercapnia; E87.3 Alkalosis; Z87.891 Personal history of nicotine dependence
CPT/HCPCS: 36600; 71045; 80048; 80053; 81003; 81015; 82248; 82550; 82607; 82805; 82962; 83036; 83735; 84100; 84145; 84443; 84484; 85025; 85027; 85610; 85730; 93005; 94640; 94660; J1569